=== PATIENT | female | born 1955 | race Caucasian/White ===

== ENCOUNTER → 2019-10-30 | Outpatient (CLI) | payer MEDICARE, BC, OTHER ==
--- NOTE | 2019-10-30 10:27 | REP ---
Clinical: Lung screening. History smoking. Comparison: 09/21/2018 Technique: Axial low-dose noncontrast images from the thoracic inlet to the upper abdomen using lung screening technique. Findings: The lung pastrana are well-aerated. Mild stable emphysematous changes are appreciated along with small focal subpleural density in the posterior left mid lung zone (image 50) which remains unchanged. 2 mm noncalcified nodule in the subpleural right lower lobe (image 59) remains unchanged. No consolidation, significant nodule or mass lesion is appreciated. No pleural effusion/reaction or pneumothorax. Tracheobronchial tree is patent. Mediastinum demonstrates mild atherosclerotic changes of the coronary arteries without cardiomegaly. Impression: Lung-RADS category II. Stable findings again noted. No significant nodule or suspicious abnormality. Annual low-dose CT follow-up evaluation recommended. Electronically Signed by Bert Johnson MD 10/30/2019 10:18 A
== END ==
LOC: M RAD 09:58
PROVIDERS: ATTEND Internal Medicine Pulmonary Disease
DX: F17.210 Nicotine dependence, cigarettes, uncomplicated (principal); Z12.2 Encounter for screening for malignant neoplasm of respiratory organs

== ENCOUNTER → 2020-11-18 | Outpatient (CLI) | payer MEDICARE, BC, OTHER | LOC: M RAD 09:20 | PROVIDERS: ATTEND Internal Medicine Pulmonary Disease | DX: Z12.2 Encounter for screening for malignant neoplasm of respiratory organs (principal); F17.210 Nicotine dependence, cigarettes, uncomplicated; R91.8 Other nonspecific abnormal finding of lung field ==

== ENCOUNTER → 2021-12-04 | Outpatient (CLI) | payer MEDICARE, BC, OTHER | LOC: M RAD 10:38 | PROVIDERS: ATTEND Internal Medicine Pulmonary Disease | DX: R91.8 Other nonspecific abnormal finding of lung field (principal); F17.218 Nicotine dependence, cigarettes, with other nicotine-induced disorders ==

== ENCOUNTER → 2022-12-25 | Outpatient (CLI) | payer MEDICARE, BC, OTHER | LOC: M RAD 10:26 | PROVIDERS: ATTEND Internal Medicine Pulmonary Disease | DX: F17.218 Nicotine dependence, cigarettes, with other nicotine-induced disorders (principal) ==